=== PATIENT | female | born 1970 | race Caucasian/White ===

== ENCOUNTER 2020-08-19 04:55 | Emergency (ER) | payer SELFPAY ==
[2020-08-19 04:59] VITALS: BP 150/88; PULSE 79; RESP 14; TEMP 36.3; O2SAT 100; BMI 52.9
--- NOTE | 2020-08-19 05:08 | ED_ITS ---
Documented by User: Jacqueline Whittaker 08/19/20 05:10 HPI - Back Pain/Injury General: Chief Complaint: Back Pain/Injury Stated Complaint: abd pain, side Time Seen by Provider: 08/19/20 05:02 Source: patient Mode of arrival: ambulatory Limitations: no limitations History of Present Illness: HPI Narrative: Wendy is a 50-year-old female comes in complaining of left flank pain. Patient states her pain is been intermittent for the past 2 to 3 days but over the past several hours it has become constant. She describes it as a sharp pain that comes from the left side of her back and radiates down into her left groin. She has had urinary frequency but denies dysuria or hematuria. Patient states she has had similar symptoms in the past and it was a kidney infection. She has had no fevers or chills. He has had nausea without vomiting. She denies any change in her bowel habits. She denies any vaginal discharge or bleeding. The patient has had a hysterectomy. She is taken Tylenol at home which is not helped her pain but she is not noticed anything that makes her symptoms worse. Associated symptoms: Deny abdominal pain, chills, difficulty walking, dysuria, fatigue, fever(s), hematuria, nausea, syncope, urinary urgency or vomiting Review of Systems Const: Denies: fever(s), chills, body aches, fatigue, malaise or diaphoresis Eyes: Denies: change in vision, blurry vision, photophobia, eye discomfort, eye discharge, eye redness or yellow eyes ENMT: Denies: throat pain, odynophagia, hoarseness, swelling of lips/tongue, ear or mastoid pain, ear discharge, change in hearing or nasal discharge Card: Denies: chest pain, palpitations, irregular heart rhythm, edema, lightheadedness, syncope, pre-syncope, dyspnea on exertion or orthopnea Resp: Denies: dyspnea, productive cough, non-productive cough, wheezing, hemoptysis or chest congestion GI: Denies: abdominal pain, nausea, vomiting, hematemesis, coffee ground emesis, heartburn, diarrhea, constipation, GI cramping, hematochezia or melena : Reports: flank pain and urinary frequency; Denies: dysuria, urinary urgency or hematuria Musc: Denies: neck pain, back pain, extremity pain, extremity swelling, joint pain, joint swelling, joint redness, joint warmth or joint stiffness Skin/Breast: Denies: rash, pruritus, erythema, skin pain or skin tenderness Neuro: Denies: headache(s), numbness in extremities, weakness in extremities, sensory changes, lack of coordination, difficulty walking, dizziness, vertigo, confusion, Slurred speech present or seizure-like activity Rafael/Lymph: Denies: easy bruising, easy bleeding, petechiae, purpura or enlarged lymph nodes All/Imm: Denies: urticaria, throat swelling, tongue swelling, facial swelling or acute wheezing PFSH ED PFSH: Medical History (Updated 08/19/20 @ 06:30 by Vilma Zamora MD) No pertinent past medical history Surgical History (Updated 08/19/20 @ 05:10 by Jacqueline Whittaker) H/O: hysterectomy Physical Exam Const: COMMON NORMALS: no acute distress, patient oriented x3, no limitations and alert GENERAL APPEARANCE: cooperative HENMT: COMMON NORMALS: normocephalic, atraumatic, external ears normal, EAC's normal and Normal external nose present HEAD & SCALP: normal to inspection, normocephalic and atraumatic FACE & SINUS: normal facial exam and face symmetric NOSE: Normal external nose present and Normal nares present EXTERNAL EAR: Yes external ears normal EXTERNAL AUDITORY CANAL: EAC's normal MOUTH: Normal oral and palatal mucosa present, lip normal and tongue normal Eye: COMMON NORMALS: Equal, round and reactive pupils present and conjunctivae normal GENERAL EYE: appearance normal, both eyes and all related structures ALIGNMENT: Yes alignment normal PERIORBITAL: periorbital findings normal EYELID: eyelids normal CONJUNCTIVA: Yes conjunctivae normal SCLERA: sclerae normal PUPIL: Yes Equal, round and reactive pupils present Neck/C-Spine: COMMON NORMALS: full ROM, no lymphadenopathy, supple, no meningeal signs and no JVD GENERAL: Yes normal visual inspection and Yes trachea midline Chest: COMMONS NORMALS: normal inspection of the chest and normal palpation of entire chest wall Resp: COMMON NORMALS: normal respiratory effort, No retractions, No use of accessory muscles and clear to auscultation bilaterally EFFORT & INSPECTION: Yes able to speak in complete sentences and Yes symmetric chest movement AUSCULTATION: clear to auscultation bilaterally, no crackles, no rales, no rhonchi and no wheezes Cardio: COMMON NORMALS: no JVD, regular rate, regular rhythm, S1 normal heart sound present and S2 normal heart sound present RATE: regular rate RHYTHM: regular rhythm HEART SOUNDS: S1 normal heart sound present, S2 normal heart sound present, no click, no gallops, no murmurs and no rubs GI: COMMON NORMALS: Soft to palpation and No hepatosplenomegaly present PALPATION: Yes Soft to palpation, No Tenderness to palpation present (GI), No Guarding due to palpation present (GI), No Rigid due to palpation, Yes No hepatosplenomegaly present, No Hernia present, No Palpable mass present and No Pulsatile mass present : COMMON NORMALS: Yes no CVA tenderness BLADDER/KIDNEY EXAM: Yes no CVA tenderness EXTERNAL FEMALE EXAM: No Hernia present Back/Pelvis: COMMON NORMALS: no CVA tenderness, thoracic and lumbar spine normal to inspection, no thoracic nor lumbar tenderness and thoraco-lumbar ROM normal Extremity: COMMON NORMALS: normal to inspection, full ROM, capillary refill normal, no joint enlargement, no clubbing, cyanosis or edema and no calf tende rness Neuro: COMMON NORMALS: patient oriented x3, CN's II-XII intact bilaterally, moves all extremities, no focal motor deficits and no sensory deficits noted SENSORIUM/ORIENTATION: Yes alert MENINGEAL SIGNS: Yes no meningeal signs SPEECH: speech normal Psych: COMMON NORMALS: mental status grossly normal, Normal thought process present, cooperative, normal affect, speech normal and activity/motor behavior normal SPEECH: Yes normal speech THOUGHT PROCESS: Normal thought process present Skin: COMMON NORMALS: no rashes or lesions noted, turgor normal, no jaundice, no petechiae and no mottling GENERAL SKIN EXAM: no rashes or lesions noted and turgor normal Course Vital Signs: Vital signs: Vital Signs Temperature 97.3 F L 08/19/20 04:59 Pulse Rate 68 08/19/20 06:07 Respiratory Rate 16 08/19/20 06:07 Blood Pressure 138/79 08/19/20 06:07 Pulse Oximetry 100 08/19/20 06:07 MDM - Back Pain/Injury Lab Data: Labs: Lab Results 08/19/20 08/19/20 Range/Units 05:20 05:20 WBC 11.8 H (4.0-10.0) 10^3/ uL RBC 4.44 (4.1-5.3) 10^6/u L Hgb 11.9 (11.5-15.3) g/dL Hct 39.6 (37.0-47.0) % MCV 89.2 (81-99) fL MCH 26.8 L (28.0-34.0) pg MCHC 30.1 (30.0-36.0) g/dL RDW 13.3 (12.1-15.1) % Plt Count 297 (130-400) 10^3/c mm MPV 10.4 (7.4-10.4) fL Neut % (Auto) 82.0 % Lymph % (Auto) 10.3 % O'Brien % (Auto) 6.2 % Eos % (Auto) 1.0 % Baso % (Auto) 0.3 % Neut # (Auto) 9.64 H (1.8-7.7) 10^3/u L Lymph # (Auto) 1.2 (0.8-4.8) 10^3/u L O'Brien # (Auto) 0.7 (0.2-0.9) 10^3/u L Eos # (Auto) 0.1 (0.0-0.8) 10^3/u L Baso # (Auto) 0.0 (0.0-0.1) 10^3/u L Nucleated RBC % (a uto) 0 % Nucleated RBCs # 0.0 /100WBC Sodium 139 (136-145) mmol/L Potassium 3.2 L (3.5-5.1) mmol/L Chloride 102 (98-107) mmol/L Carbon Dioxide 28 (22-29) mmol/L Anion Gap 12.2 (5-19) BUN 8 (6-20) mg/dL Creatinine 1.1 H (0.5-0.9) mg/dL GFR Calculation 52.8 L (90-130) mL/min Glucose 113 (65-115) mg/dL Calculated Osmolal ity 287 (285-295) mOsm/k g Calcium 9.4 (8.5-10.5) mg/dL Total Bilirubin 0.4 (0.15-1.2) mg/dL AST 10 (0-32) U/L ALT 10 (0-33) U/L Alkaline Phosphata se 80 (35-105) IU/L Total Protein 7.4 (6.6-8.7) g/dL Albumin 4.2 (3.5-5.2) g/dL Globulin 3.2 (1.3-4.6) g/dL Discharge Plan Discharge Patient Disposition: Home Clinical Impression: Kidney stone Condition: Stable Prescriptions: New Boykins 5-325 mg tablet 1 tab PO Q6H PRN (Reason: pain) Qty: 14 RF: 0 ondansetron 4 mg tablet,disintegrating 4 mg PO Q6H PRN (Reason: nausea and vomiting) Qty: 14 RF: 0 Discharge Orders: Discharge Order (Routine); Ordered 08/19/20 Ordered By: Vilma Zamora Referrals: Jorge Rodriguez MD [Physician] - 1-3 days Leticia Solares DO [Primary Care Provider] - Discharge Diet: Advance as tolerated Discharge Activity: Resume usual activity Patient Instructions: Kidney Stones (ED) Coding Level of Care Code ED Cardiopulmonary Technologist for Chg Fwd Exam Comprehensive Documented by User: Vilma Zamora MD 08/19/20 06:35 HPI - Back Pain/Injury General: Chief Complaint: Back Pain/Injury Stated Complaint: abd pain, side Time Seen by Provider: 08/19/20 05:02 [facility] ED PFSH: Medical History (Updated 08/19/20 @ 06:30 by Vilma Zamora MD) No pertinent past medical history Surgical History (Updated 08/19/20 @ 05:10 by Jacqueline Whittaker) H/O: hysterectomy Course Vital Signs: Vital signs: Vital Signs Temperature 97.3 F L 08/19/20 04:59 Pulse Rate 68 08/19/20 06:07 Respiratory Rate 16 08/19/20 06:07 Blood Pressure 138/79 08/19/20 06:07 Pulse Oximetry 100 08/19/20 06:07 MDM - Back Pain/Injury MDM Narrative: Medical decision making narrative: Wendy presents here with a rather large kidney stone. I spoke to Dr. Rodriguez he plans on likely doing lithotripsy tomorrow. Spoke to patient and her pain is much improved. Will prescribe her pain meds. She is instructed to do a liquid diet and to take laxatives today and follow-up with Dr. Rodriguez tomorrow morning. She is to return if worsening. She understands and agrees to plan. Lab Data: Labs: Lab Results 08/19/20 08/19/20 Range/Units 05:20 05:20 WBC 11.8 H (4.0-10.0) 10^3/ uL RBC 4.44 (4.1-5.3) 10^6/u L Hgb 11.9 (11.5-15.3) g/dL Hct 39.6 (37.0-47.0) % MCV 89.2 (81-99) fL MCH 26.8 L (28.0-34.0) pg MCHC 30.1 (30.0-36.0) g/dL RDW 13.3 (12.1-15.1) % Plt Count 297 (130-400) 10^3/c mm MPV 10.4 (7.4-10.4) fL Neut % (Auto) 82.0 % Lymph % (Auto) 10.3 % O'Brien % (Auto) 6.2 % Eos % (Auto) 1.0 % Baso % (Auto) 0.3 % Neut # (Auto) 9.64 H (1.8-7.7) 10^3/u L Lymph # (Auto) 1.2 (0.8-4.8) 10^3/u L O'Brien # (Auto) 0.7 (0.2-0.9) 10^3/u L Eos # (Auto) 0.1 (0.0-0.8) 10^3/u L Baso # (Auto) 0.0 (0.0-0.1) 10^3/u L Nucleated RBC % (a uto) 0 % Nucleated RBCs # 0.0 /100WBC Sodium 139 (136-145) mmol/L Potassium 3.2 L (3.5-5.1) mmol/L Chloride 102 (98-107) mmol/L Carbon Dioxide 28 (22-29) mmol/L Anion Gap 12.2 (5-19) BUN 8 (6-20) mg/dL Creatinine 1.1 H (0.5-0.9) mg/dL GFR Calculation 52.8 L (90-130) mL/min Glucose 113 (65-115) mg/dL Calculated Osmolal ity 287 (285-295) mOsm/k g Calcium 9.4 (8.5-10.5) mg/dL Total Bilirubin 0.4 (0.15-1.2) mg/dL AST 10 (0-32) U/L ALT 10 (0-33) U/L Alkaline Phosphata se 80 (35-105) IU/L Total Protein 7.4 (6.6-8.7) g/dL Albumin 4.2 (3.5-5.2) g/dL Globulin 3.2 (1.3-4.6) g/dL Imaging Data^: CT Abd/Pel: Attestation: I personally reviewed and interpreted this imaging study as follows: Radiologist's impression: [place] [address] CT Scan Report Signed Patient: Wendy Mccallum Unit #: [id number] : 1970 Age/Sex: 50 / F ADM Date: 08/19/20 Loc: ER Room/Bed: Attending Dr: Ordering Provider/Ordering MD: Jacqueline Whittaker DO Date of Service: 08/19/20 Procedure(s): CT kidney stone 71250 Accession Number(s): [id number] Report Number: [id number] PROCEDURE INFORMATION: Exam: CT Abdomen And Pelvis Without Contrast Exam date and time: 08/19/2020 5:24 AM Age: 50 years old Clinical indication: Abdominal pain; Flank; Left; Additional info: Flank/abdominal pain TECHNIQUE: Imaging protocol: Computed tomography of the abdomen and pelvis without contrast. Radiation optimization: All CT scans at this facility use at least one of these dose optimization techniques: automated exposure control; mA and/or kV adjustment per patient size (includes targeted exams where dose is matched to clinical indication); or iterative reconstruction. COMPARISON: No relevant prior studies available. RADIATION DOSE METRICS: Total DLP (mGy-cm): 1909.81 FINDINGS: Liver: Multiple small benign cysts are present in the liver. Gallbladder and bile ducts: There is a large calcified stone in the gallbladder. Pancreas: Normal. No ductal dilation. Spleen: Normal. No splenomegaly. Adrenal glands: Normal. No mass. Kidneys and ureters: There is a 1 cm obstructing calculus at the left ureteral pelvic junction. There is moderate left hydronephrosis with left perinephric stranding. No other calcifications are seen in the kidneys. Stomach and bowel: Unremarkable. No obstruction. No mucosal thickening. Appendix: No evidence of appendicitis. Intraperitoneal space: Unremarkable. No free air. No significant fluid collection. Vasculature: Unremarkable. No abdominal aortic aneurysm. Lymph nodes: Unremarkable. No enlarged lymph nodes. Urinary bladder: Unremarkable as visualized. Reproductive: Unremarkable as visualized. 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 Soft tissues: There is a 6 cm fat containing umbilical hernia. CT/CT kidney stone 18588 IMPRESSION: 1. There is a 1 cm calculus at the left ureteropelvic junction with left hydronephrosis. 2. Cholelithiasis. Discharge Plan Discharge Patient Disposition: Home Clinical Impression: Kidney stone Condition: Stable Prescriptions: New Boykins 5-325 mg tablet 1 tab PO Q6H PRN (Reason: pain) Qty: 14 RF: 0 ondansetron 4 mg tablet,disintegrating 4 mg PO Q6H PRN (Reason: nausea and vomiting) Qty: 14 RF: 0 Discharge Orders: Discharge Order (Routine); Ordered 08/19/20 Ordered By: Vilma Zamora Referrals: Jorge Rodriguez MD [Physician] - 1-3 days Leticia Solares DO [Primary Care Provider] - Discharge Diet: Advance as tolerated Discharge Activity: Resume usual activity Patient Instructions: Kidney Stones (ED) Coding Level of Care Code ED Cardiopulmonary Technologist for Chg Fwd Exam Comprehensive
--- NOTE | 2020-08-19 05:20 | PC.NURSE ---
Patient tried to provide urine sample but unable to urinate at this time.
[2020-08-19 05:31] VITALS: RESP 16; O2SAT 99
[2020-08-19] MEDS: morphine 4 mg/mL SDV 1 mL IVP (05:31)
[2020-08-19] MEDS: ondansetron 2 mg/ML SDV 2 mL 4 MG IVP (05:32)
[2020-08-19] MEDS: sodium chloride 0.9% 1,000 ML 999 ML IV (05:32)
[2020-08-19 05:36] LABS: Basophils % 0.3 %; Eosinophils # 0.1 10^3/uL (0.0-0.8); Hematocrit 39.6 % (37.0-47.0); Hemoglobin 11.9 g/dL (11.5-15.3); Lymphocytes # 1.2 10^3/uL (0.8-4.8); Lymphocytes % 10.3 %; Mean Corpuscular HGB Conc 30.1 g/dL (30.0-36.0); Mean Corpuscular Hemoglobin 26.8 pg (28.0-34.0); Mean Corpuscular Volume 89.2 fL (81-99); Mean Platelet Volume 10.4 fL (7.4-10.4); Monocytes # 0.7 10^3/uL (0.2-0.9); Monocytes % 6.2 %; Neutrophils # 9.64 10^3/uL (1.8-7.7); Nucleated Red Blood Cells % 0 %; Platelet Count 297 10^3/cmm (130-400); Red Blood Count 4.44 10^6/uL (4.1-5.3); Red Cell Distribution Width 13.3 % (12.1-15.1); White Blood Count 11.8 10^3/uL (4.0-10.0)
[2020-08-19 05:42] VITALS: BP 138/78; PULSE 72; RESP 17; O2SAT 100
[2020-08-19 05:53] LABS: Alanine Aminotransferase 10 U/L (0-33); Albumin Level 4.2 g/dL (3.5-5.2); Alkaline Phosphatase 80 IU/L (35-105); Anion Gap 12.2 (5-19); Aspartate Amino Transferase 10 U/L (0-32); Blood Urea Nitrogen 8 mg/dL (6-20); Calcium 9.4 mg/dL (8.5-10.5); Carbon Dioxide 28 mmol/L (22-29); Chloride 102 mmol/L (98-107); Creatinine Clr Calc Pharmacy 89.7502; Globulin 3.2 g/dL (1.3-4.6); Glomerular Filtration Rate 52.8 mL/min (90-130); Glucose 113 mg/dL (65-115); Osmolality Calculated 287 mOsm/kg (285-295); Potassium 3.2 mmol/L (3.5-5.1); Sodium 139 mmol/L (136-145); Total Bilirubin 0.4 mg/dL (0.15-1.2); Total Protein 7.4 g/dL (6.6-8.7)
[2020-08-19 06:07] VITALS: BP 138/79; PULSE 68; RESP 16; O2SAT 100
[2020-08-19] MEDS: ketorolac 30 mg/mL INJ IVP (06:20)
[2020-08-19 06:37] VITALS: RESP 17; O2SAT 100
[2020-08-19] MEDS: HYDROmorphone 1 mg/mL INJ 1 mL IVP (06:37)
[2020-08-19 06:43] VITALS: BP 119/79; PULSE 61; RESP 17; TEMP 36.7; O2SAT 100
== END 2020-08-19 06:43 | disposition home or self-care (01) ==
PROVIDERS: Emergency Medicine; Emergency Provider Emergency Medicine; PCP Family Medicine
DX: N20.0 Calculus of kidney (principal)
CPT/HCPCS: 12345; 74176; 80053; 85025; 96361; 96374; 96375; 99282; 99283; J1170; J1885; J2270; J2405; J7030

== ENCOUNTER 2020-08-20 08:45 | Outpatient (CLI) | payer SELFPAY ==
--- NOTE | 2020-08-20 08:47 | XR_ITS ---
WS: [id number] ABDOMEN KUB CLINICAL INFORMATION: Renal/ureteral calculi. COMPARISON: CT August 19, 2020 FINDINGS: Left UPJ calculus appears unchanged measuring 12 mm. No visualized right renal parenchymal or uretera l calculi. Cholelithiasis. XR/XR KUB [id number] Impression: Left UPJ calculus measuring 12 mm appears unchanged since CT August 19, 2020
== END 2020-08-20 08:46 | disposition home or self-care (01) ==
LOC: RAD 08:47
PROVIDERS: PCP Family Medicine; Visit Provider Urology
DX: N20.0 Calculus of kidney (principal)
CPT/HCPCS: 74018

== ENCOUNTER 2020-08-20 10:54 | Day surgery (SDC) | payer SELFPAY ==
[2020-08-20] VITALS (8 sets, daily range): BP systolic 110–142; BP diastolic 58–89; PULSE 54–76; RESP 16–21; TEMP 36.4–36.6; O2SAT 95–100; BMI 52.9
[2020-08-20 13:19] LABS: OR HCG Qualitative Urine Negative (Negative)
[2020-08-20] MEDS: sodium chloride 0.9% 1,000 ML 30 ML IV (13:24)
--- NOTE | 2020-08-20 13:52 | ANES.PREANE2 ---
Pre-Anesthetic Assessment Pre-Anesthetic Assessment: Height/Weight: Height 1.65 m Weight 144.242 kg Temp Pulse Resp BP Pulse Ox 97.5 F L 76 18 142/89 98 08/20/20 13:02 08/20/20 13:02 08/20/20 13:02 08/20/20 13:02 08/20/20 13:02 Preop Diagnosis: Large left proximal ureteral stone Proposed Procedure: Operation Date: 08/20/20 14:40 Proposed Procedures p ESWL [id number](Not Applicable) - Jorge Rodriguez MD s Cystoscopy(Not Applicable) - MD shayla Joseph Retrograde Pyelogram(Left) - MD shayla Jospeh Laser Lithotripsy(Not Applicable) - MD shayla Joseph Ureteral Stent Placement(Not Applicable) - Jorge Rodriguez MD Last intake: Intake Last Liquid Date 08/19/20 Last Liquid Time 21:00 Last Solid Date 08/18/20 Social: Social History: No alcohol and No tobacco Exam: Pre-Anes Outpt Exam: alert, oriented x 3, clear to auscultation bilaterally and regular rate & rhythm Airway: Submandibular: WNL Cervical ROM: WNL MP: 2 History/ROS: No significant history except as noted Pulmonary: Pulmonary: None reported CV/HEM: CV/HEM: None reported : Comments: Left Ureteral Calculus Hepatic: Hepatic: None reported GI: GI: None reported Metabolic: Metabolic: Morbid obesity Musc/skel: Musc/skel: None reported Neuropsych: Neuropsych: None reported Anesthetic Plan: ASA status: 3 Anesthesia: General Meds/Allergies Current Medications: Current Medications Generic Name Dose Route Start Last Admin Trade Name Freq PRN Reason Stop Dose Admin Sodium Chloride 1,000 mls @ 30 ml s/hr 08/20/20 13:15 08/20/20 13:24 Sodium Chloride 0.9% IV 08/21/20 13:14 30 mls/hr .Q24H CAREN Administration PFSH Anesthesia PFSH: Medical History Left ureteral stone No pertinent past medical history Surgical History H/O: hysterectomy History of total left knee replacement Hx of carpal tunnel repair Family History Other CAD (coronary artery disease) Cancer Diabetes Social History Smoking and tobacco status: never smoked Alcohol intake: never Adopted: No Caregiver/support person: No Lives independently: No Household members: spouse Marital status: Current occupational status: employed Data Anesthesia Other Labs: Laboratory Results - last 48 hr 08/20/20 13:18 Urine HCG, Qual Negative Cardiac Studies: No Data to Display
[2020-08-20] MEDS: levofloxacin-dextrose 5 % 500 MG/100 ML PREMIX 100 MG IV (15:16)
--- NOTE | 2020-08-20 15:26 | W.PM.OPSUD ---
Surgery/Procedure H&P Update DATE OF PROCEDURE: August 20, 2020 DATE H&P PERFORMED: 08/20/20 H&P UPDATE INFORMATION: I have reviewed H&P completed within last 30 days, I have examined patient prior to procedure, No changes to prior documentation and H&P is in [facility] on date indicated PREOP DIAGNOSIS: Large left proximal ureteral stone PLANNED PROCEDURE: Operation Date: 08/20/20 14:40 Proposed Procedures p ESWL [id number](Not Applicable) - Jorge Rodriguez MD s Cystoscopy(Not Applicable) - Jorge Rodriguez MD s Retrograde Pyelogram(Left) - Jorge Rodriguez MD s Laser Lithotripsy(Not Applicable) - Jorge Rodriguez MD s Ureteral Stent Placement(Not Applicable) - Jorge Rodriguez MD
--- NOTE | 2020-08-20 15:27 | P.OP_ITS ---
Operative Report Date of procedure: August 20, 2020 Pre-op Diagnosis: Large left proximal ureteral stone Post-op diagnosis: same Procedure Done: 1. Extracorporeal shockwave lithotripsy to large left proximal ureteral stone 2. Cystoscopy left ureteral stent placement (7 Micronesian by 26 cm double-pigtail without string) Pathology: none sent Surgeon: Michael Ct Scan Technologist: Rebel: Lithotripsy product development technician Anesthesia: General Estimated blood loss: Minimal Urine output: Not measured Complications: None Findings: The stone was easily identified. 2500 shocks were administered with excellent change. Rate 70-90. Intensity 1-4. Condition: stable Disposition: PACU Brief History: Ms. Mccallum is a very pleasant 50-year-old white female who was in the emergency department 2 days ago with complaints of severe left sided abdominal pain consistent with renal colic and a CT scan confirmed about a 1.7 x 6 mm left UPJ stone with obstructive changes. No evidence of infection. No contraindications for treatment and she elected because of the low likelihood of spontaneous passage to proceed with intervention. After detailed explanation of her options including endoscopy versus ESWL with stent she chose the latter. We reviewed the possibility of a requirement of a second treatment given the size of the stone and the patient's girth. Procedure: After urgent evaluation examination and obtaining of informed consent she was taken to the operating suite on 08/20/2020 where general anesthesia was administered without difficulty after appropriate timeout was performed, SCDs confirmed to be functioning, preoperative antibiotics administered, beta-noelle protocol confirmed. Positioned on the Dornier unit in supine position with a shock head positioned anteriorly. The stone was easily identified with biplanar fluoroscopy and placed in the focal point. Shockwave rate was initially 70 and toward the end of the procedure as the change became obvious it was increased to 90. Intensity was begun at 1 and advanced to 4. A several minute pause was conducted after about 300 shocks. The stone showed excellent change beginning about 1500 shocks and by the co mpletion of the procedure it was hard to see any obvious fragments. Due to the bulk of the stone it was elected to proceed with stent placement to avoid Steinstrasse or reobstruction. Prepped and draped in the usual sterile fashion in dorsolithotomy position paying careful attention to avoiding pressure points. The 21 Micronesian cystoscope with 30 degree lens was introduced into the urethra meatus and advanced into the bladder under videoscopy. There was mild bloody efflux coming from the left ureteral orifice and a flexible tip guidewire was easily advanced up the left ureter bypassing the area where the stone had been located curling in the kidney. A 7 Micronesian by 26 cm double-pigtail stent was advanced without difficulty over the guidewire through the cystoscope into appropriate position as confirmed via fluoroscopy and cystoscopy. The bladder was drained and the procedure completed. She tolerated the procedure well without complications and was awakened in the operating room and returned to the care of room in stable condition. PLANS: 1. Anticipate discharge from outpatient surgery 2. Follow-up in approximately 1 week with KUB and possible stent removal in the clinic. Based on the size of the stone we reviewed the possibility of second treatment being required but hopefully given the results today that will not be necessary.
--- NOTE | 2020-08-20 16:14 | SUR.PHASEI ---
1612 PATIENT TO PACU FROM OR. RR EVEN AND UNLABORED. SPO2 95% ON RA.
--- NOTE | 2020-08-20 16:19 | ANE.PACU2 ---
Inpatient post-anesthesia follow up: Airway intact: Yes Vital signs: Temperature 97.9 F Pulse Rate 67 Respiratory Rate 18 Blood Pressure 120/62 Pulse Oximetry 99 Oxygen Delivery Me thod Room Air Oxygen Flow Rate Fraction of Inspir ed Oxygen Hydration adequate: Yes Nausea and vomiting: No Pain level: 3 Mental status: Baseline
[2020-08-20] MEDS: ondansetron 2 mg/ML SDV 2 mL 4 MG IVP (16:24)
--- NOTE | 2020-08-20 16:34 | SUR.PHASEI ---
1631 TO OPS. DENIES PAIN. TOLERATING ICE CHIPS.
== END 2020-08-20 17:10 | disposition home or self-care (01) ==
PROVIDERS: Anesthesiology; Visit Provider Urology
PROC: (CPT 50590; principal; 2020-08-20 14:40)
PROC: 0TJB8ZZ Inspection of Bladder, Via Natural or Artificial Opening Endoscopic (ICD-10-PCS; CPT 52000; 2020-08-20 14:40)
PROC: (CPT 74420; 2020-08-20 14:40)
PROC: (CPT 50605; 2020-08-20 14:40)
DX: N20.1 Calculus of ureter (principal); E66.01 Morbid (severe) obesity due to excess calories; Z68.43 Body mass index [BMI] 50.0-59.9, adult
CPT/HCPCS: 50590; 52332; 12345; 81025; 84703; C2625; J1956; J2405; J2704; J3010; J7030

== ENCOUNTER 2020-08-27 08:32 | Outpatient (CLI) | payer SELFPAY ==
--- NOTE | 2020-08-27 08:37 | XR_ITS ---
WS: [id number] Exam: XR KUB [id number] Date/Time of Exam: 08/27/2020 8:40 AM Reason For Exam: UTERAL STENT PLACEMENT A left-sided ureteral stent is noted. A 12 mm left abdominal calcification is identified. No bowel ob struction or free air. Visualized organ margins are otherwise intact. XR/XR KUB [id number] IMPRESSION: 1. Left-sided ureteral stent catheter noted. 2. 2 mm ovoid calcification in the left abdomen that may represent a urinary tr act stone.
== END 2020-08-27 08:33 | disposition home or self-care (01) ==
LOC: RAD 08:34
PROVIDERS: Visit Provider Urology
DX: Z96.0 Presence of urogenital implants (principal)
CPT/HCPCS: 74018; 81003; 82365; 88300

== ENCOUNTER 2020-09-11 14:27 | Outpatient (CLI) | payer SELFPAY ==
--- NOTE | 2020-09-11 15:30 | XRR_ITS ---
PROCEDURE INFORMATION: Exam: XR Abdomen, 1 View Exam date and time: 09/11/2020 2:44 PM Age: 50 years old Clinical indication: Condition or disease; Kidney or ureter condition; Calculus (stone) in kidney and calculus (stone) in ureter; Prior surgery; Surgery type: Lithotripsy; Additional info: Ureteral stone TECHNIQUE: Imaging protocol: XR of the abdomen. Views: Frontal supine view of the abdomen. 1 View. COMPARISON: CR XR KUB [id number] 08/27/2020 8:44 AM FINDINGS: Tubes, catheters and devices: Left nephroureteral stent. Liver is enlarged. Gastrointestinal tract: Normal. No bowel dilation. Intraperitoneal space: A 1 cm left abdominal calcification is identified. Bones/joints: Unremarkable. XR/XR KUB [id number] IMPRESSION: Left ureteral stent. 1 cm calcification overlying the left renal shadow.
== END 2020-09-11 14:28 | disposition home or self-care (01) ==
PROVIDERS: Visit Provider Urology
DX: N20.1 Calculus of ureter (principal); Z96.0 Presence of urogenital implants
CPT/HCPCS: 74018

== ENCOUNTER 2020-10-02 14:32 | Outpatient (CLI) | payer SELFPAY ==
--- NOTE | 2020-10-02 15:15 | XRR_ITS ---
PROCEDURE INFORMATION: Exam: XR Abdomen, 1 View Exam date and time: 10/02/2020 3:08 PM Age: 50 years old Clinical indication: Condition or disease; Kidney or ureter condition; Calculus (stone) in ureter; Prior surgery; Surgery type: C section x 2; Additional info: Left renal stone TECHNIQUE: Imaging protocol: XR of the abdomen. Views: Frontal supine view of the abdomen. 1 View. COMPARISON: CR XR KUB [id number] 09/11/2020 2:36 PM FINDINGS: Gastrointestinal tract: Normal. No bowel dilation. Organs: Tiny calcification projects at the inferior pole of the left renal silhouette, which may be a nonobstructing renal stone. Bones/joints: Mild degenerative changes are seen in the thoracic and lumbar spine, and both hips. No fracture or dislocation. XR/XR KUB [id number] IMPRESSION: 1. No acute abnormality is seen. 2. Possible left kidney renal stone.
== END 2020-10-02 14:33 | disposition home or self-care (01) ==
PROVIDERS: Visit Provider Urology
DX: N20.0 Calculus of kidney (principal)
CPT/HCPCS: 74018

== ENCOUNTER 2020-10-19 07:01 | Outpatient (CLI) | payer SELFPAY ==
--- NOTE | 2020-10-19 07:09 | XR_ITS ---
WS: [id number] KUB, 10/19/2020 Clinical Data: LEFT RENAL STONE Comparison: KUB, 10/02/2020. Findings: No abnormal intraabdominal masses are seen. There is no dilatated small bowel or evidence of obstruc tion. Fecal material and colon gas obscure both kidneys. No definite renal calculi are seen. There is a marisa cification on the left side of the true pelvis which could be in the distal left ureter. XR/XR KUB [id number] Impression: Possible left ureterovesical junction calculus.
== END 2020-10-19 07:02 | disposition home or self-care (01) ==
LOC: RAD 07:02
PROVIDERS: Visit Provider Urology
DX: N20.0 Calculus of kidney (principal)
CPT/HCPCS: 74018

== ENCOUNTER 2020-10-30 12:58 | Outpatient (CLI) | payer SELFPAY ==
--- NOTE | 2020-10-30 13:15 | XRR_ITS ---
PROCEDURE INFORMATION: Exam: XR Abdomen, 2 Views Exam date and time: 10/30/2020 1:00 PM Age: 50 years old Clinical indication: Condition or disease; Kidney or ureter condition; Calculus (stone) in kidney; Prior surgery; Surgery type: C section x 2; Additional info: Left renal stone TECHNIQUE: Imaging protocol: XR of the abdomen. Views: 2 Views. COMPARISON: CR XR KUB [id number] 10/19/2020 7:17 AM FINDINGS: Gastrointestinal tract: Mild colonic dilatation and prominent stool, suggesting constipation. Intraperitoneal space: No free air. Bones/joints: Degenerative change. Other: Enlargement of the hepatic silhouette. Evaluation of the renal fossa is limited by overlying bowel gas and stool. Vascular: Punctate calcifications, presumably vascular in etiology. If urolithiasis is of clinical concern, CT may be of benefit for further evaluation. XR/XR KUB [id number] IMPRESSION: Mild colonic dilatation and prominent stool, suggesting constipation.
== END 2020-10-30 12:59 | disposition home or self-care (01) ==
PROVIDERS: Visit Provider Urology
DX: N20.0 Calculus of kidney (principal)
CPT/HCPCS: 74018; 81003